=== PATIENT | female | born 1990 | race Caucasian/White ===

== ENCOUNTER 2019-07-13 12:00 | Inpatient (IN) ==
[2019-07-13 13:48] LABS: Protein/Creatinine Ratio,Urine 0.27 mg/mg (0.00-0.20)
[2019-07-13 14:54] LABS: Basophils % 0.4 %; Eosinophils # 0.1 K/mcL (0.0-0.6); Eosinophils % 0.7 %; Hematocrit 35.2 % (35.3-44.9); Immature Granulocytes % 0.5 % (0-4); Lymphocytes # 2.3 K/mcL (0.6-4.6); Lymphocytes % 23.6 %; Mean Corpuscular HGB Conc 34.1 g/dL (31.6-35.5); Mean Corpuscular Hemoglobin 31.4 pg (28.0-33.3); Mean Corpuscular Volume 92.1 fL (83.0-100.0); Mean Platelet Volume 12.3 fL (9.4-12.4); Monocytes # 0.6 K/mcL (0.0-1.3); Monocytes % 6.4 %; Neutrophils # 6.6 K/mcL (1.6-8.9); Platelet Count 266 K/mcL (140-400); Red Blood Count 3.82 M/mcL (3.82-4.97); Red Cell Distribution Width 12.7 % (11.5-14.5); Segmented Neutrophils % 68.4 %; White Blood Count 9.6 K/mcL (4.3-11.1)
[2019-07-13 15:06] LABS: Alanine Aminotransferase 15 Units/L (7-52); Aspartate Amino Transferase 20 Units/L (13-39); BUN/Creatinine Ratio 21 (6-26); Blood Urea Nitrogen 9 mg/dL (6-20); Lactate Dehydrogenase 188 Units/L (140-271); eGFR For African Americans > 60 (> 60); eGFR For Non-African Americans > 60 (> 60)
[2019-07-13] MEDS ORDERED: miSOPROStoL 25 MCG TABLET PO PRN (16:23)
[2019-07-13] MEDS ORDERED: Oxytocin 20 units/ LR 1000 mL 20 UNIT/1,000 ML BAG IVC SCH (16:30)
[2019-07-13] MEDS ORDERED: EPHEDrine 50 MG/ML VIAL IVP PRN (18:23)
[2019-07-13] MEDS ORDERED: Naloxone 0.4 MG/ML INJ IVP PRN (18:23)
[2019-07-13] MEDS ORDERED: Ondansetron 4 MG/2 ML VIAL IVP PRN (18:23)
[2019-07-13] MEDS ORDERED: Ropivacaine/PF 0.2% 20 ML VIAL EP ONE (18:23)
[2019-07-13] MEDS ORDERED: *HR* FentaNYL (PF) 100 MCG/2 ML VIAL EP ONE (18:23)
[2019-07-13] MEDS ORDERED: Ringers Solution, Lactated 2,000 ML ONE (18:27)
[2019-07-13] MEDS ORDERED: Epidural Premix (fent/bupiv) 110 ML EP SCH (18:30)
[2019-07-13] MEDS ORDERED: *HR* FentaNYL (PF) 100 MCG/2 ML VIAL ONE (18:32)
[2019-07-13] MEDS ORDERED: Famotidine 20 MG/2 ML VIAL IVP PRN (19:16)
[2019-07-13] MEDS ORDERED: Lidocaine 1% 20 ML MDV INFILT PRN (19:16)
[2019-07-13] MEDS ORDERED: Metoclopramide 10 MG/2 ML VIAL IVP PRN (19:16)
[2019-07-13] MEDS ORDERED: Azithromycin 500 MG in 0.9 % Sodium Chloride 250 ML IVPB PRN (19:16)
[2019-07-13] MEDS ORDERED: Ringers Solution, Lactated 1,000 ML IVC SCH (19:30)
[2019-07-13] MEDS ORDERED: Acetaminophen 325 MG TABLET PO ONE (21:29)
[2019-07-14] MEDS ORDERED: Rho Immune Globulin 1,500 UNIT SYRINGE IM PRN (00:50)
[2019-07-14] MEDS ORDERED: Oxytocin 20 units/ LR 1000 mL 20 UNIT/1,000 ML BAG IVC ONE (00:50)
[2019-07-14] MEDS ORDERED: Measles/Mumps/Rubella Vacc 0.5 ML VIAL SQ PRN (00:50)
[2019-07-14] MEDS: Oxytocin 20 units/ LR 1000 mL 20 UNIT/1,000 ML BAG IVC SCH ×2 (01:10→21:47)
[2019-07-14] MEDS: Ibuprofen 600 MG TABLET PO PRN ×2 (04:09→15:30)
[2019-07-14] MEDS: Acetaminophen 325 MG TABLET PO PRN ×2 (08:46→15:30)
[2019-07-14] MEDS: Prenatal Vit/FA 1 EACH TABLET PO SCH (08:46)
[2019-07-14 09:18] LABS: Basophils # 0.1 K/mcL (0.0-0.2); Basophils % 0.3 %; Eosinophils # 0.1 K/mcL (0.0-0.6); Eosinophils % 0.9 %; Hematocrit 32.8 % (35.3-44.9); Hemoglobin 11.6 g/dL (11.5-15.4); Immature Granulocytes % 0.4 % (0-4); Lymphocytes # 2.9 K/mcL (0.6-4.6); Lymphocytes % 18.7 %; Mean Corpuscular HGB Conc 35.4 g/dL (31.6-35.5); Mean Corpuscular Hemoglobin 32.8 pg (28.0-33.3); Mean Corpuscular Volume 92.7 fL (83.0-100.0); Mean Platelet Volume 11.8 fL (9.4-12.4); Monocytes # 1.1 K/mcL (0.0-1.3); Monocytes % 6.8 %; Platelet Count 208 K/mcL (140-400); Red Blood Count 3.54 M/mcL (3.82-4.97); Red Cell Distribution Width 12.5 % (11.5-14.5); Segmented Neutrophils % 72.9 %
[2019-07-14 09:19] LABS: Neutrophils # 11.4 K/mcL (1.6-8.9); White Blood Count 15.6 K/mcL (4.3-11.1)
[2019-07-14] MEDS ORDERED: Benzocaine/Menthol 56 GM AEROSOL SPRAY TP PRN (20:40)
[2019-07-15] MEDS: Acetaminophen 325 MG TABLET PO PRN ×2 (00:17→06:36)
[2019-07-15] MEDS: Ibuprofen 600 MG TABLET PO PRN ×2 (00:18→06:36)
[2019-07-15] MEDS ORDERED: Lanolin 7 G OINT...G. TP PRN (01:20)
[2019-07-15 07:42] VITALS: BP 140/96
[2019-07-15] MEDS: Prenatal Vit/FA 1 EACH TABLET PO SCH (08:26)
== END 2019-07-15 11:48 | disposition home or self-care (01) ==
LOC: 1NENULAB 12:03 → 1NENUOBS 07-14 00:48
PROVIDERS: ADMIT Obstetrics & Gynecology; ATTEND Obstetrics & Gynecology

== ENCOUNTER 2019-11-01 05:09 | Observation (INO) ==
[2019-11-01] MEDS ORDERED: *HR* FentaNYL (PF) 100 MCG/2 ML VIAL IVP ONE ×2 (05:49→08:01)
[2019-11-01 05:53] LABS: Prothrombin Time 11.8 Seconds (9.4-12.1)
[2019-11-01 05:55] LABS: Activated Partial Thrombo Time 32.6 Seconds (26.0-36.0)
[2019-11-01 05:56] LABS: Basophils # 0.1 K/mcL (0.0-0.2); Basophils % 0.5 %; Eosinophils # 0.1 K/mcL (0.0-0.6); Eosinophils % 0.7 %; Hematocrit 35.8 % (35.3-44.9); Immature Granulocytes % 0.4 % (0-4); Lymphocytes # 2.1 K/mcL (0.6-4.6); Lymphocytes % 12.3 %; Mean Corpuscular HGB Conc 33.5 g/dL (31.6-35.5); Mean Corpuscular Hemoglobin 30.9 pg (28.0-33.3); Mean Corpuscular Volume 92.3 fL (83.0-100.0); Mean Platelet Volume 10.9 fL (9.4-12.4); Monocytes # 0.8 K/mcL (0.0-1.3); Monocytes % 4.9 %; Neutrophils # 13.7 K/mcL (1.6-8.9); Platelet Count 370 K/mcL (140-400); Red Blood Count 3.88 M/mcL (3.82-4.97); Segmented Neutrophils % 81.2 %; White Blood Count 16.9 K/mcL (4.3-11.1)
[2019-11-01 06:07] LABS: Alanine Aminotransferase 13 Units/L (7-52); Albumin 4.2 g/dL (3.5-5.7); Albumin/Globulin Ratio 1.6 (1.1-2.2); Alkaline Phosphatase 75 Units/L (34-104); Aspartate Amino Transferase 14 Units/L (13-39); BUN/Creatinine Ratio 26 (6-26); Bilirubin,Direct 0.1 mg/dL (0.0-0.2); Bilirubin,Indirect 0.4 mg/dL (0.0-1.0); Bilirubin,Total 0.5 mg/dL (0.3-1.0); Blood Urea Nitrogen 18 mg/dL (6-20); Calcium 9.3 mg/dL (8.6-10.3); Carbon Dioxide 24 mEq/L (23-29); Chloride 106 mEq/L (98-107); Globulin 2.6 g/dL (2.4-3.5); Glucose 106 mg/dL (70-105); Lipase 33 Units/L (11-82); Osmolality,Calculated 288 (280-300); Potassium 3.6 mEq/L (3.5-5.1); Sodium 138 mEq/L (136-145); Total Protein 6.8 g/dL (6.4-8.9); eGFR For African Americans > 60 (> 60); eGFR For Non-African Americans > 60 (> 60)
[2019-11-01 06:09] LABS: Bacteria,Urine Many per hpf (None-Few); Bilirubin,Urine Negative (Negative); Blood,Urine Negative (Negative); Clarity,Urine Turbid (Clear); Color,Urine Yellow (Yellow); Glucose,Urine (UA) Normal (Normal); Ketones,Urine Negative (Negative); Leukocyte Esterase,Urine Large (Negative); Mucus,Urine Many per lpf (None-Few); Nitrite,Urine Positive (Negative); Protein,Urine 30 mg/dL (Neg-Trace); RBC,Urine 30-50 per hpf (0-3); Specific Gravity,Urine > 1.030 (1.010-1.025); Squamous Epithelial Cell,Urine Moderate per hpf (None-Few); Urobilinogen,Urine Normal (Normal); WBC,Urine TNTC per hpf (0-3)
[2019-11-01] MEDS ORDERED: cefTRIAXone 1,000 MG in Water for inj. (sterile) 10 ML IVP ONE (06:27)
[2019-11-01] MEDS ORDERED: 0.9 % Sodium Chloride 1,000 ML IVC ONE (08:01)
[2019-11-01 08:33] LABS: Chlamydia Trachomatis DNA Ur NOT DETECTED (Not Detect)
[2019-11-01 08:50] LABS: Candida DNA DETECTED (Not Detect); Gardnerella DNA Not Detected (Not Detect); Trichomonas DNA Not Detected (Not Detect)
[2019-11-01 09:30] LABS: Hematocrit 33.8 % (35.3-44.9); Hemoglobin 11.5 g/dL (11.5-15.4)
[2019-11-01] MEDS ORDERED: Acetaminophen/Aspirin/Caffeine TABLET PO STA (09:57)
[2019-11-01] MEDS ORDERED: Acetaminophen/Aspirin/Caffeine TABLET PO PRN (09:59)
[2019-11-01] MEDS ORDERED: Ringers Solution, Lactated 1,000 ML IVC SCH (10:30)
[2019-11-01] MEDS ORDERED: Naloxone 0.4 MG/ML INJ IVP PRN (10:59)
[2019-11-01] MEDS ORDERED: Fluconazole 150 MG TABLET PO ONE (11:06)
[2019-11-01] MEDS ORDERED: *HR* FentaNYL (PF) 100 MCG/2 ML VIAL IVP PRN (11:06)
[2019-11-01] MEDS ORDERED: Ketorolac 30 MG/ML VIAL IVP SCH (11:30)
[2019-11-01] MEDS: *HR* OxyCODONE/APAP 5/325 TABLET PO PRN ×2 (12:10→16:10)
[2019-11-01 12:37] VITALS: BP 138/89
[2019-11-01 13:19] LABS: Hematocrit 33.1 % (35.3-44.9)
[2019-11-02] MEDS ORDERED: Prenatal Vit/FA 1 EACH TABLET PO SCH (09:00)
== END 2019-11-01 16:45 | disposition home or self-care (01) ==
LOC: EMEROOARM 05:09 → 1NENUOBS 05:09
PROVIDERS: ADMIT Obstetrics & Gynecology; ATTEND Obstetrics & Gynecology

== ENCOUNTER 2021-09-08 02:30 | Observation (INO) ==
[2021-09-08] MEDS ORDERED: 0.9 % Sodium Chloride 1,000 ML IVC ONE (03:17)
[2021-09-08] MEDS ORDERED: Ondansetron 4 MG/2 ML VIAL IVP ONE ×2 (03:20→08:48)
[2021-09-08] MEDS ORDERED: *HR* FentaNYL (PF) 100 MCG/2 ML VIAL IVP ONE ×2 (03:20→08:52)
[2021-09-08 04:01] LABS: Basophils # 0.1 K/mcL (0.0-0.2); Basophils % 0.5 %; Eosinophils # 0.2 K/mcL (0.0-0.6); Eosinophils % 1.3 %; Hematocrit 32.2 % (35.3-44.9); Hemoglobin 11.3 g/dL (11.5-15.4); Immature Granulocytes % 0.5 % (0-4); Lymphocytes % 17.5 %; Mean Corpuscular HGB Conc 35.1 g/dL (31.6-35.5); Mean Corpuscular Hemoglobin 31.1 pg (28.0-33.3); Mean Corpuscular Volume 88.7 fL (83.0-100.0); Mean Platelet Volume 10.6 fL (9.4-12.4); Monocytes # 1.1 K/mcL (0.0-1.3); Monocytes % 6.5 %; Neutrophils # 12.6 K/mcL (1.6-8.9); Platelet Count 316 K/mcL (140-400); Red Blood Count 3.63 M/mcL (3.82-4.97); Segmented Neutrophils % 73.7 %; White Blood Count 17.1 K/mcL (4.3-11.1)
[2021-09-08 04:16] LABS: Alanine Aminotransferase 19 Units/L (7-52); Albumin/Globulin Ratio 1.4 (1.1-2.2); Alkaline Phosphatase 85 Units/L (34-104); Aspartate Amino Transferase 15 Units/L (13-39); BUN/Creatinine Ratio 19 (6-26); Bilirubin,Indirect 0.4 mg/dL (0.0-1.0); Bilirubin,Total 0.4 mg/dL (0.3-1.0); Blood Urea Nitrogen 14 mg/dL (6-20); Calcium 9.2 mg/dL (8.6-10.3); Carbon Dioxide 23 mEq/L (23-29); Chloride 105 mEq/L (98-107); Globulin 2.8 g/dL (2.4-3.5); Glucose 130 mg/dL (70-105); Lipase 22 Units/L (11-82); Osmolality,Calculated 290 (280-300); Potassium 3.9 mEq/L (3.5-5.1); Sodium 139 mEq/L (136-145); Total Protein 6.8 g/dL (6.4-8.9); eGFR For African Americans > 60 (> 60); eGFR For Non-African Americans > 60 (> 60)
[2021-09-08] MEDS ORDERED: Isovue-370 500 ML BOTTLE IVP ONE ×2 (04:48→06:15)
[2021-09-08 05:17] LABS: Bacteria,Urine Few per hpf (None-Few); Bilirubin,Urine Negative (Negative); Blood,Urine Negative (Negative); Clarity,Urine Turbid (Clear); Color,Urine Yellow (Yellow); Glucose,Urine (UA) Normal (Normal); Ketones,Urine 20 mg/dL (Negative); Leukocyte Esterase,Urine Large (Negative); Mucus,Urine Many per lpf (None-Few); Nitrite,Urine Negative (Negative); Protein,Urine 50 mg/dL (Neg-Trace); Specific Gravity,Urine > 1.030 (1.010-1.025); Squamous Epithelial Cell,Urine Many per hpf (None-Few); Urobilinogen,Urine Normal (Normal); WBC,Urine 15-30 per hpf (0-3)
[2021-09-08] MEDS ORDERED: cefTRIAXone 1,000 MG in 0.9 % Sodium Chloride Mini Bag 100 ML IVPB ONE (06:01)
[2021-09-08] MEDS ORDERED: Morphine Sulfate 2 MG/ML SYRINGE IVP ONE ×2 (06:03→08:28)
[2021-09-08] MEDS ORDERED: 0.9 % Sodium Chloride 500 ML ONE (07:48)
[2021-09-08] MEDS ORDERED: Heparin 1,000 UNITS/500 mL 500 ML ONE (07:48)
[2021-09-08 07:54] LABS: INR 1.1; Prothrombin Time 12.4 Seconds (9.4-12.1)
[2021-09-08] MEDS ORDERED: *HR* Midazolam HCl 2 MG/2 ML VIAL IVP ONE (08:52)
[2021-09-08] MEDS ORDERED: 0.9 % Sodium Chloride 1,000 ML ONE (08:57)
[2021-09-08] MEDS: ceFAZolin 1,000 MG in 0.9 % Sodium Chloride Mini Bag 100 ML IVP SCH ×2 (09:20→09:35)
[2021-09-08] MEDS ORDERED: Isovue-300 50ML VIAL IVP ONE ×2 (09:27→09:37)
[2021-09-08] MEDS: *HR* HYDROmorphone (PF) 1 MG/ML SYRINGE IVP PRN ×2 (13:34→17:09)
[2021-09-08] MEDS: Ringers Solution, Lactated 1,000 ML IVC SCH (13:35)
[2021-09-08 14:19] LABS: Basophils # 0.1 K/mcL (0.0-0.2); Basophils % 0.5 %; Eosinophils % 0.2 %; Hematocrit 31.1 % (35.3-44.9); Hemoglobin 10.3 g/dL (11.5-15.4); Immature Granulocytes % 1.4 % (0-4); Lymphocytes # 2.8 K/mcL (0.6-4.6); Lymphocytes % 15.9 %; Mean Corpuscular HGB Conc 33.1 g/dL (31.6-35.5); Mean Corpuscular Hemoglobin 30.8 pg (28.0-33.3); Mean Corpuscular Volume 93.1 fL (83.0-100.0); Mean Platelet Volume 10.6 fL (9.4-12.4); Monocytes % 5.6 %; Neutrophils # 13.5 K/mcL (1.6-8.9); Platelet Count 343 K/mcL (140-400); Red Blood Count 3.34 M/mcL (3.82-4.97); Red Cell Distribution Width 12.3 % (11.5-14.5); Segmented Neutrophils % 76.4 %; White Blood Count 17.6 K/mcL (4.3-11.1)
[2021-09-08 17:42] LABS: Hematocrit 28.8 % (35.3-44.9); Hemoglobin 9.7 g/dL (11.5-15.4)
[2021-09-08] MEDS ORDERED: Acetaminophen 325 MG TABLET PO PRN (18:11)
[2021-09-08] MEDS ORDERED: Acetaminophen/Butalbital/CaffeineTABLET PO PRN (22:31)
[2021-09-09] MEDS ORDERED: RELPAX 40 MG PO PRN (00:15)
[2021-09-09] MEDS: Ringers Solution, Lactated 1,000 ML IVC SCH (01:02)
[2021-09-09] MEDS: *HR* HYDROmorphone (PF) 1 MG/ML SYRINGE IVP PRN ×2 (03:54→09:35)
[2021-09-09 05:09] LABS: Basophils # 0.1 K/mcL (0.0-0.2); Basophils % 0.5 %; Eosinophils # 0.4 K/mcL (0.0-0.6); Eosinophils % 3.5 %; Hematocrit 24.7 % (35.3-44.9); Hemoglobin 8.6 g/dL (11.5-15.4); Immature Granulocytes % 0.3 % (0-4); Lymphocytes # 3.5 K/mcL (0.6-4.6); Lymphocytes % 29.7 %; Mean Corpuscular HGB Conc 34.8 g/dL (31.6-35.5); Mean Corpuscular Hemoglobin 31.5 pg (28.0-33.3); Mean Corpuscular Volume 90.5 fL (83.0-100.0); Mean Platelet Volume 10.8 fL (9.4-12.4); Monocytes # 0.8 K/mcL (0.0-1.3); Neutrophils # 6.9 K/mcL (1.6-8.9); Platelet Count 263 K/mcL (140-400); Red Blood Count 2.73 M/mcL (3.82-4.97); Red Cell Distribution Width 12.8 % (11.5-14.5); White Blood Count 11.7 K/mcL (4.3-11.1)
[2021-09-09 05:27] VITALS: TEMP 98.5
[2021-09-09 08:40] VITALS: BP 105/62; PULSE 113; O2SAT 95
== END 2021-09-09 12:30 | disposition home or self-care (01) ==
LOC: EMEROOARM 02:30 → 1NENUPED 02:30
PROVIDERS: ADMIT Obstetrics & Gynecology; ATTEND Obstetrics & Gynecology

== ENCOUNTER 2021-09-29 03:37 | Observation (INO) ==
[2021-09-29] MEDS ORDERED: Isovue-370 500 ML BOTTLE IVP ONE (03:46)
[2021-09-29] MEDS ORDERED: 0.9 % Sodium Chloride 1,000 ML IVC ONE (03:46)
[2021-09-29] MEDS ORDERED: Famotidine 20 MG/2 ML VIAL IVP ONE (04:09)
[2021-09-29] MEDS ORDERED: GI Cocktail 40 ML EACH PO ONE (04:09)
[2021-09-29 04:12] LABS: Hemoglobin 12.8 g/dL (11.5-15.4); Mean Corpuscular HGB Conc 33.7 g/dL (31.6-35.5); Mean Corpuscular Hemoglobin 30.9 pg (28.0-33.3); Mean Corpuscular Volume 91.8 fL (83.0-100.0); Mean Platelet Volume 10.1 fL (9.4-12.4); Platelet Count 489 K/mcL (140-400); Red Blood Count 4.14 M/mcL (3.82-4.97); Red Cell Distribution Width 12.6 % (11.5-14.5); White Blood Count 10.9 K/mcL (4.3-11.1)
[2021-09-29 04:17] LABS: INR 1.1; Prothrombin Time 12.6 Seconds (9.4-12.1)
[2021-09-29 04:19] LABS: Activated Partial Thrombo Time 38.4 Seconds (26.0-36.0)
[2021-09-29 04:31] LABS: BUN/Creatinine Ratio 21 (6-26); Blood Urea Nitrogen 14 mg/dL (6-20); Calcium 9.7 mg/dL (8.6-10.3); Carbon Dioxide 27 mEq/L (23-29); Chloride 102 mEq/L (98-107); Creatine Kinase 53 Units/L (30-223); Ethanol < 10 mg/dL (Less than 10); Glucose 96 mg/dL (70-105); Osmolality,Calculated 286 (280-300); Potassium 3.5 mEq/L (3.5-5.1); Sodium 138 mEq/L (136-145); eGFR For African Americans > 60 (> 60); eGFR For Non-African Americans > 60 (> 60)
[2021-09-29 04:33] LABS: Troponin I < 0.03 ng/mL (< 0.04)
[2021-09-29 05:29] LABS: Bilirubin,Urine Negative (Negative); Blood,Urine Negative (Negative); Clarity,Urine Clear (Clear); Color,Urine Colorless (Yellow); Glucose,Urine (UA) Normal (Normal); Ketones,Urine Negative (Negative); Leukocyte Esterase,Urine Small (Negative); Mucus,Urine Few per lpf (None-Few); Nitrite,Urine Negative (Negative); PH,Urine 6.5 pH Units (5.0-8.0); Protein,Urine Trace mg/dL (Neg-Trace); RBC,Urine 0-3 per hpf (0-3); Specific Gravity,Urine > 1.030 (1.010-1.025); Squamous Epithelial Cell,Urine Moderate per hpf (None-Few); Urobilinogen,Urine Normal (Normal)
[2021-09-29] MEDS ORDERED: cefTRIAXone 1,000 MG in Water for inj. (sterile) 10 ML IVP ONE (05:55)
[2021-09-29] MEDS ORDERED: Naloxone 0.4 MG/ML INJ IVP PRN (07:54)
[2021-09-29] MEDS ORDERED: Acetaminophen 325 MG TABLET PO PRN (07:54)
[2021-09-29] MEDS ORDERED: Melatonin 3 MG TABLET PO PRN (07:54)
[2021-09-29] MEDS ORDERED: Ondansetron 4 MG/2 ML VIAL IVP PRN (07:54)
[2021-09-29] MEDS ORDERED: Perflutren Lipid Microsphere 1.3 ML in 0.9 % Sodium Chloride 8.7 ML IVP PRN (08:08)
[2021-09-29] MEDS ORDERED: Aspirin 81 MG TAB.CHEW PO SCH (09:00)
[2021-09-29] MEDS ORDERED: Divalproex (12 HR) 250 MG TABLET PO SCH (09:00)
[2021-09-29 10:00] VITALS: BP 156/101; PULSE 106; TEMP 97.9; O2SAT 100
[2021-09-30] MEDS ORDERED: *HR* Enoxaparin 40 MG/0.4 ML SYRINGE SQ SCH (06:00)
== END 2021-09-29 15:02 | disposition home or self-care (01) ==
LOC: 3BNU 03:37 → EMEROOARM 03:37 → 3BNU 09:50
PROVIDERS: ADMIT Student in an Organized Health Care Education/Training Program; ATTEND Student in an Organized Health Care Education/Training Program